=== PATIENT | female | born 1935 | race Caucasian/White ===

== ENCOUNTER 2017-12-18 21:43 | Inpatient (IN) | payer MEDICAID, MEDICARE ==
[~2017-12-18] VITALS: Ht 160 cm; Wt 65.0 kg
[~2017-12-18 21:43] MED LIST: ASPI325T17 PO; ATOR40TA PO; CARV3.1212 PO; CARV3.122 PO; FURO-92 PO; FURO40TA6 PO; LEVO750T26 PO; LISI5TAB7 PO; MULTI VITAMINS; OMEP20CA9 PO; ONDA4TAB12 PO; ONDA4TAB7 PO; POTA10TA11 PO; SPIR25TA PO
[2017-12-18] MEDS ORDERED: SODIUM CHLORIDE 0.9% 1,000ML IVBOLUS ONE (22:30)
[2017-12-18] MEDS ORDERED: ASPIRIN 81 MG TABLET CHEW PO ONE (22:30)
[2017-12-18 22:58] LABS: BASOPHILS # (AUTO) 0.06 x10^3/uL (0-0.1); BASOPHILS % (AUTO) 1 % (0-1); EOSINOPHILS # (AUTO) 0.13 x10^3/uL (0-0.4); EOSINOPHILS % (AUTO) 2 % (1-7); LYMPHOCYTES % (AUTO) 19 % (22-44); MD NO; MEAN CORPUSCULAR HEMOGLOBIN 29.4 pg (27.0-34.8); MEAN CORPUSCULAR HGB CONC 33.7 g/dL (32.4-35.8); MEAN CORPUSCULAR VOLUME 87.4 fL (80-100); MEAN PLATELET VOLUME 6.1 fL (7.4-10.4); MONOCYTES # (AUTO) 0.66 x10^3/uL (0.2-0.8); MONOCYTES % (AUTO) 7 % (2-9); NEUTROPHILS # (AUTO) 6.38 x10^3/uL (1.8-6.8); NEUTROPHILS % (AUTO) 71 % (42-75); PLATELET COUNT 247 x10^3/uL (130-400); RED BLOOD COUNT 4.24 x10^6/uL (3.82-5.3); RED CELL DISTRIBUTION WIDTH 15.7 % (9.6-15.2)
[2017-12-18 23:08] LABS: ALBUMIN 3.5 g/dL (3.4-5.0); ANION GAP 9 mmol/L (5-15); CALCIUM 8.8 mg/dL (8.5-10.1); CHLORIDE 107 mmol/L (98-107); CREATININE 0.85 mg/dL (0.55-1.02)
[2017-12-18 23:12] LABS: TROPONIN I 0.024 ng/mL (0.000-0.045)
[2017-12-18] MEDS ORDERED: ASPIRIN 81 MG TABLET CHEW ONE (23:56)
[2017-12-19] VITALS (10 sets, daily range): BP systolic 110–150; BP diastolic 69–83
[2017-12-19 00:20] LABS: MICROSCOPIC INDICATED
[2017-12-19] MEDS ORDERED: POLYETHYLENE GLYCOL 17 GM PACKET PO PRN (00:30)
[2017-12-19] MEDS ORDERED: ACETAMINOPHEN 325 MG TABLET PO PRN (00:30)
[2017-12-19] MEDS ORDERED: BISACODYL 10 MG SUPP PR PRN (00:30)
[2017-12-19] MEDS ORDERED: ONDANSETRON ODT 4 MG PO PRN (00:30)
[2017-12-19 06:56] LABS: BASOPHILS # (AUTO) 0.04 x10^3/uL (0-0.1); BASOPHILS % (AUTO) 1 % (0-1); EOSINOPHILS # (AUTO) 0.16 x10^3/uL (0-0.4); EOSINOPHILS % (AUTO) 2 % (1-7); LYMPHOCYTES # (AUTO) 1.69 x10^3/uL (1-3.4); LYMPHOCYTES % (AUTO) 23 % (22-44); MD NO; MEAN CORPUSCULAR HEMOGLOBIN 29.2 pg (27.0-34.8); MEAN CORPUSCULAR HGB CONC 33.5 g/dL (32.4-35.8); MEAN CORPUSCULAR VOLUME 87.1 fL (80-100); MEAN PLATELET VOLUME 5.9 fL (7.4-10.4); MONOCYTES # (AUTO) 0.75 x10^3/uL (0.2-0.8); MONOCYTES % (AUTO) 10 % (2-9); NEUTROPHILS # (AUTO) 4.75 x10^3/uL (1.8-6.8); NEUTROPHILS % (AUTO) 64 % (42-75); PLATELET COUNT 220 x10^3/uL (130-400); RED BLOOD COUNT 3.97 x10^6/uL (3.82-5.3); RED CELL DISTRIBUTION WIDTH 15.5 % (9.6-15.2)
[2017-12-19 07:06] LABS: ALANINE AMINOTRANSFERASE 19 U/L (12-78); ALBUMIN 3.2 g/dL (3.4-5.0); ANION GAP 7 mmol/L (5-15); CALCIUM 8.5 mg/dL (8.5-10.1); CHLORIDE 112 mmol/L (98-107)
[2017-12-19 07:11] LABS: ALKALINE PHOSPHATASE 93 U/L (45-117); BILIRUBIN,TOTAL 0.5 mg/dL (0.2-1.0); CREATININE 0.69 mg/dL (0.55-1.02); TOTAL PROTEIN 6.9 g/dL (6.4-8.2); TROPONIN I 0.021 ng/mL (0.000-0.045)
[2017-12-19] MEDS: SENNA/DOCUSATE TABLET PO SCH (09:00)
[2017-12-19] MEDS: FUROSEMIDE 40 MG TABLET PO SCH ×2 (10:00→21:03)
[2017-12-19] MEDS: POTASSIUM CHLORIDE 10 MEQ TABLET.ER PO SCH ×2 (10:00→21:02)
[2017-12-19] MEDS: CARVEDILOL 3.125 MG TABLET PO SCH ×2 (10:00→21:03)
[2017-12-19] MEDS: SODIUM CHLORIDE FLUSH 10ML SYR IVF SCH ×2 (10:03→21:11)
[2017-12-19] MEDS: ASPIRIN 325 MG TABLET PO SCH (10:05)
[2017-12-19 10:59] LABS: TROPONIN I 0.018 ng/mL (0.000-0.045)
[2017-12-19] MEDS ORDERED: ATORVASTATIN 40 MG TABLET PO SCH (21:00)
[2017-12-20 01:42] VITALS: BP 114/75
[2017-12-20 07:37] VITALS: BP 100/68
[2017-12-20] MEDS: SENNA/DOCUSATE TABLET PO SCH (09:00)
[2017-12-20] MEDS: SODIUM CHLORIDE FLUSH 10ML SYR IVF SCH (09:25)
[2017-12-20] MEDS: FUROSEMIDE 40 MG TABLET PO SCH (09:26)
[2017-12-20] MEDS: ASPIRIN 325 MG TABLET PO SCH (09:26)
[2017-12-20] MEDS: POTASSIUM CHLORIDE 10 MEQ TABLET.ER PO SCH (09:26)
[2017-12-20] MEDS: CARVEDILOL 3.125 MG TABLET PO SCH (09:26)
[2017-12-20 12:46] VITALS: BP 108/63
== END 2017-12-20 18:59 | disposition home or self-care (01) | DRG 74 ==
LOC: ED 23:18 → EDIP 23:40 → 5SO 12-19 00:48
PROVIDERS: ADMIT Family Medicine; ATTEND Family Medicine
DX: G90.8 Other disorders of autonomic nervous system (principal); I50.22 Chronic systolic (congestive) heart failure; E46 Unspecified protein-calorie malnutrition; W18.30XA Fall on same level, unspecified, initial encounter; I11.0 Hypertensive heart disease with heart failure; S00.31XA Abrasion of nose, initial encounter; E78.5 Hyperlipidemia, unspecified; Z92.21 Personal history of antineoplastic chemotherapy; Z87.11 Personal history of peptic ulcer disease; Z85.72 Personal history of non-Hodgkin lymphomas; Z87.81 Personal history of (healed) traumatic fracture; Z88.0 Allergy status to penicillin; Z87.440 Personal history of urinary (tract) infections; Y93.89 Activity, other specified; Y99.8 Other external cause status; Y92.009 Unspecified place in unspecified non-institutional (private) residence as the place of occurrence of the external cause; Z68.25 Body mass index [BMI] 25.0-25.9, adult
CPT/HCPCS: 36415; 70450; 71045; 80048; 80053; 81001; 82040; 83880; 84484; 85025; 90656; 93005; 93306; 93880; 96360; G0378; J7030

== ENCOUNTER 2018-06-16 22:26 | Inpatient (IN) | payer MEDICARE, MEDICAID ==
[~2018-06-16] VITALS: Ht 162.6 cm; Wt 63.7 kg
[2018-06-16 23:17] LABS: BASOPHILS # (AUTO) 0.02 x10^3/uL (0-0.1); BASOPHILS % (AUTO) 0 % (0-1); EOSINOPHILS # (AUTO) 0.13 x10^3/uL (0-0.4); EOSINOPHILS % (AUTO) 2 % (1-7); LYMPHOCYTES # (AUTO) 0.47 x10^3/uL (1-3.4); LYMPHOCYTES % (AUTO) 6 % (22-44); MD NO; MEAN CORPUSCULAR HGB CONC 33.9 g/dL (32.4-35.8); MEAN CORPUSCULAR VOLUME 88.7 fL (80-100); MEAN PLATELET VOLUME 6.2 fL (7.4-10.4); MONOCYTES # (AUTO) 0.83 x10^3/uL (0.2-0.8); MONOCYTES % (AUTO) 10 % (2-9); NEUTROPHILS # (AUTO) 6.93 x10^3/uL (1.8-6.8); NEUTROPHILS % (AUTO) 83 % (42-75); PLATELET COUNT 245 x10^3/uL (130-400); RED BLOOD COUNT 4.12 x10^6/uL (3.82-5.3); RED CELL DISTRIBUTION WIDTH 16.8 % (9.6-15.2)
[2018-06-16 23:29] LABS: ALANINE AMINOTRANSFERASE 21 U/L (12-78); ALBUMIN 3.6 g/dL (3.4-5.0); ANION GAP 9 mmol/L (5-15); CALCIUM 12.7 mg/dL (8.5-10.1); CHLORIDE 103 mmol/L (98-107); CREATININE 1.31 mg/dL (0.55-1.02)
[2018-06-16 23:34] LABS: ALKALINE PHOSPHATASE 102 U/L (45-117); BILIRUBIN,TOTAL 0.7 mg/dL (0.2-1.0); TOTAL PROTEIN 7.5 g/dL (6.4-8.2); TROPONIN I 0.026 ng/mL (0.000-0.045)
--- NOTE | 2018-06-17 00:05 | NUR ---
Family reports pt got dizzy and fell in shower yesterday, unk loc. Pt reports left leg pain, per family, unable to walk.
[2018-06-17 00:20] LABS: MICROSCOPIC AUTO
[2018-06-17 00:23] LABS: CULTURE INDICATED? YES
--- NOTE | 2018-06-17 01:28 | NUR ---
in for recheck.
[2018-06-17] MEDS ORDERED: CEFTRIAXONE PMX 1GM/50ML 50 ML IV ONE (02:00)
--- NOTE | 2018-06-17 02:05 | NUR ---
report received from shad sweet.
--- NOTE | 2018-06-17 02:10 | NUR ---
report given to candace sweet. all questions answered.
[2018-06-17] MEDS ORDERED: CEFTRIAXONE PMX 1GM/50ML 50 ML ONE (02:13)
--- NOTE | 2018-06-17 02:22 | NUR ---
pt medicated per emar. pt tolerated well.
--- NOTE | 2018-06-17 02:43 | NUR ---
report given to sariah sweet. all questions answered.
[2018-06-17 03:34] VITALS: BP 149/74
[2018-06-17] MEDS ORDERED: ONDANSETRON 4 MG TABLET PO PRN (04:00)
[2018-06-17] MEDS ORDERED: ZOFRAN MC SCH (04:00)
[2018-06-17] MEDS ORDERED: POTASSIUM CHLORIDE 20 MEQ TAB.ER.PRT PO ONE (04:00)
[2018-06-17] MEDS: NS + 20MEQ KCL 1,000 ML IV SCH (05:08)
[2018-06-17] MEDS: HEPARIN 5,000 UNITS/ML, 1ML SQ SCH ×3 (05:08→20:39)
[2018-06-17 08:06] VITALS: BP 162/77
[2018-06-17 08:14] LABS: TROPONIN I 0.021 ng/mL (0.000-0.045)
[2018-06-17] MEDS ORDERED: CARVEDILOL 3.125 MG TABLET PO SCH (09:00)
[2018-06-17] MEDS: POTASSIUM CHLORIDE 20 MEQ TAB.ER.PRT PO SCH ×2 (09:30→20:40)
--- NOTE | 2018-06-17 10:22 | NUR ---
REC: Ground diet with thin liquids; aspiration precautions; orange sheet posted in room with swallow precautions Addendum: 06/17/18 at 1023 by Charo MERCEDES Amended: Links added.
[2018-06-17] MEDS: FUROSEMIDE 40 MG TABLET PO SCH ×2 (10:39→20:40)
[2018-06-17] MEDS: ASPIRIN 325 MG TABLET PO SCH (10:39)
[2018-06-17] MEDS ORDERED: CEFTRIAXONE 1,000 MG IM SCH (17:00)
[2018-06-17 19:41] VITALS: BP 155/90
[2018-06-17] MEDS: ATORVASTATIN 40 MG TABLET PO SCH (20:39)
[2018-06-17] MEDS: CARVEDILOL 12.5 MG TABLET PO SCH (20:41)
[2018-06-18] MEDS: NS + 20MEQ KCL 1,000 ML IV SCH ×2 (01:26→23:20)
[2018-06-18 01:54] VITALS: BP 118/67
[2018-06-18] MEDS: CEFTRIAXONE PMX 1GM/50ML 50 ML IV SCH (02:18)
[2018-06-18 05:18] LABS: BASOPHILS # (AUTO) 0.02 x10^3/uL (0-0.1); BASOPHILS % (AUTO) 0 % (0-1); EOSINOPHILS # (AUTO) 0.15 x10^3/uL (0-0.4); EOSINOPHILS % (AUTO) 2 % (1-7); LYMPHOCYTES % (AUTO) 6 % (22-44); MD NO; MEAN CORPUSCULAR HEMOGLOBIN 29.6 pg (27.0-34.8); MEAN CORPUSCULAR HGB CONC 33.4 g/dL (32.4-35.8); MEAN CORPUSCULAR VOLUME 88.5 fL (80-100); MEAN PLATELET VOLUME 6.5 fL (7.4-10.4); MONOCYTES # (AUTO) 0.85 x10^3/uL (0.2-0.8); MONOCYTES % (AUTO) 10 % (2-9); NEUTROPHILS # (AUTO) 6.99 x10^3/uL (1.8-6.8); NEUTROPHILS % (AUTO) 82 % (42-75); PLATELET COUNT 247 x10^3/uL (130-400); RED BLOOD COUNT 4.24 x10^6/uL (3.82-5.3); RED CELL DISTRIBUTION WIDTH 16.9 % (9.6-15.2)
[2018-06-18 05:28] LABS: CHLORIDE 105 mmol/L (98-107)
[2018-06-18 05:43] LABS: ALANINE AMINOTRANSFERASE 23 U/L (12-78); ALBUMIN 3.6 g/dL (3.4-5.0); ALKALINE PHOSPHATASE 104 U/L (45-117); ANION GAP 8 mmol/L (5-15); BILIRUBIN,TOTAL 1.1 mg/dL (0.2-1.0); CALCIUM 11.7 mg/dL (8.5-10.1); CREATININE 1.26 mg/dL (0.55-1.02); TOTAL PROTEIN 7.5 g/dL (6.4-8.2)
[2018-06-18] MEDS: HEPARIN 5,000 UNITS/ML, 1ML SQ SCH ×3 (06:23→20:58)
[2018-06-18 07:25] VITALS: BP 138/80
[2018-06-18] MEDS: POTASSIUM CHLORIDE 20 MEQ TAB.ER.PRT PO SCH ×2 (09:42→20:59)
[2018-06-18] MEDS: ASPIRIN 325 MG TABLET PO SCH (09:42)
[2018-06-18] MEDS: FUROSEMIDE 40 MG TABLET PO SCH ×2 (09:42→20:58)
[2018-06-18] MEDS: CARVEDILOL 12.5 MG TABLET PO SCH ×2 (09:42→20:58)
[2018-06-18 13:23] VITALS: BP 134/78
[2018-06-18 20:04] VITALS: BP 112/60
[2018-06-18 20:56] VITALS: BP 104/71
[2018-06-18] MEDS: ATORVASTATIN 40 MG TABLET PO SCH (20:59)
[2018-06-18] MEDS ORDERED: HALOPERIDOL 5 MG/ML IV PRN (23:30)
[2018-06-19 01:00] VITALS: BP 96/64
[2018-06-19] MEDS: CEFTRIAXONE PMX 1GM/50ML 50 ML IV SCH (02:09)
[2018-06-19 05:47] LABS: ALBUMIN 3.1 g/dL (3.4-5.0); ANION GAP 9 mmol/L (5-15); CHLORIDE 108 mmol/L (98-107)
[2018-06-19 05:52] LABS: ALANINE AMINOTRANSFERASE 18 U/L (12-78); ALKALINE PHOSPHATASE 90 U/L (45-117); BILIRUBIN,TOTAL 0.6 mg/dL (0.2-1.0); CREATININE 1.24 mg/dL (0.55-1.02); TOTAL PROTEIN 6.9 g/dL (6.4-8.2)
[2018-06-19] MEDS: HEPARIN 5,000 UNITS/ML, 1ML SQ SCH ×3 (05:57→21:05)
[2018-06-19 07:20] VITALS: BP 129/75
[2018-06-19 07:55] LABS: FOLATE LEVEL > 20.0 ng/mL (3.1-17.5)
[2018-06-19] MEDS ORDERED: GADOBUTROL 7.5 MMOL/7.5 ML PFS ONE (09:09)
[2018-06-19] MEDS: CARVEDILOL 12.5 MG TABLET PO SCH ×2 (09:31→21:04)
[2018-06-19] MEDS: FUROSEMIDE 40 MG TABLET PO SCH ×2 (09:31→21:05)
[2018-06-19] MEDS: ASPIRIN 325 MG TABLET PO SCH (09:31)
[2018-06-19] MEDS: POTASSIUM CHLORIDE 20 MEQ TAB.ER.PRT PO SCH ×2 (09:31→21:04)
--- NOTE | 2018-06-19 10:30 | NUR ---
REC PUREE/THIN; swallow precaution sheet posted at bedside Addendum: 06/19/18 at [address] Amended: Links added.
[2018-06-19 12:30] VITALS: BP 127/70
[2018-06-19] MEDS ORDERED: SULFAMETH./TRIMETHOPRIM DS 800MG/160MG TABLET PO ONE (18:30)
[2018-06-19 19:13] VITALS: BP 129/78
[2018-06-19] MEDS: ATORVASTATIN 40 MG TABLET PO SCH (21:04)
[2018-06-19] MEDS: NS + 20MEQ KCL 1,000 ML IV SCH (21:48)
[2018-06-20 01:09] VITALS: BP 127/77
[2018-06-20] MEDS: HEPARIN 5,000 UNITS/ML, 1ML SQ SCH ×2 (05:34→13:17)
[2018-06-20] MEDS ORDERED: SULFAMETH./TRIMETHOPRIM DS 800MG/160MG TABLET PO SCH (07:30)
[2018-06-20 07:51] VITALS: BP 130/77
[2018-06-20] MEDS ORDERED: LISINOPRIL 5 MG TABLET PO SCH (09:00)
[2018-06-20] MEDS: POTASSIUM CHLORIDE 20 MEQ TAB.ER.PRT PO SCH (09:00)
[2018-06-20] MEDS: CARVEDILOL 12.5 MG TABLET PO SCH (09:06)
[2018-06-20] MEDS: FUROSEMIDE 40 MG TABLET PO SCH (09:06)
[2018-06-20] MEDS: ASPIRIN 325 MG TABLET PO SCH (09:06)
[2018-06-20 13:15] VITALS: BP 97/63
[2018-06-20] MEDS ORDERED: SULF-169 PO (16:12)
[2018-06-20] MEDS ORDERED: LISI5TAB7 PO (16:12)
[2018-06-20] MEDS ORDERED: CARV12.543 PO (16:12)
== END 2018-06-20 16:37 | DRG 682 ==
LOC: ED 23:05 → EDIP 06-17 01:44 → 4WST 06-17 03:26 → 4EST 06-18 07:42
PROVIDERS: ADMIT Family Medicine; ATTEND Family Medicine
DX: N17.0 Acute kidney failure with tubular necrosis (principal); G93.41 Metabolic encephalopathy; C85.90 Non-Hodgkin lymphoma, unspecified, unspecified site; F05 Delirium due to known physiological condition; N30.01 Acute cystitis with hematuria; I50.22 Chronic systolic (congestive) heart failure; I42.0 Dilated cardiomyopathy; I11.0 Hypertensive heart disease with heart failure; M54.2 Cervicalgia; R53.81 Other malaise; R55 Syncope and collapse; Z82.49 Family history of ischemic heart disease and other diseases of the circulatory system; Z83.3 Family history of diabetes mellitus; E78.00 Pure hypercholesterolemia, unspecified; E78.5 Hyperlipidemia, unspecified; E86.0 Dehydration; I08.0 Rheumatic disorders of both mitral and aortic valves; I44.7 Left bundle-branch block, unspecified; I48.0 Paroxysmal atrial fibrillation; R29.6 Repeated falls; R62.7 Adult failure to thrive; Z87.891 Personal history of nicotine dependence; Z91.81 History of falling; W01.0XXA Fall on same level from slipping, tripping and stumbling without subsequent striking against object, initial encounter; Y93.89 Activity, other specified; Y92.038 Other place in apartment as the place of occurrence of the external cause; Y99.8 Other external cause status; M25.562 Pain in left knee
CPT/HCPCS: 36415; 70450; 70553; 71045; 72125; 80053; 81001; 82607; 82746; 83735; 83880; 84484; 85025; 86592; 87086; 87147; 93005; 93306; 96374; A9585; G0378; J0696; J1644; J3480; J1630; Q0177